=== PATIENT | female | born 1985 | race Caucasian/White ===

== ENCOUNTER 2018-12-31 13:30 | Emergency (ER) | payer BC ==
[~2018-12-31] VITALS: Ht 175.3 cm; Wt 59.9 kg
[2018-12-31 14:21] LABS: ABSOLUTE NEUTROPHILS 2.5 thou/uL (1.4-8.2); MCV 86.2 fL (80.0-100.0)
[2018-12-31 14:23] LABS: BASOPHILS 0.4 % (0.0-2.0); EOSINOPHILS 0.8 % (0.0-3.0); HEMOGLOBIN 13.5 gm/dL (12.0-15.0); LYMPHOCYTES 33.7 % (24.0-44.0); MCHC 33.6 g/dL (28.0-37.0); MONOCYTES 6.7 % (1.0-8.0); PLATELET COUNT 204 thou/uL (150-400); POLYS 58.4 % (36.0-66.0); RBC 4.64 mil/uL (4.20-5.00); RDW 13.3 % (10.5-14.5); WBC 4.4 thou/uL (4.0-11.0)
[2018-12-31 14:30] LABS: CALCIUM 8.9 mg/dL (8.5-10.1); CREATININE 0.9 mg/dL (0.6-1.0); MAGNESIUM 2.1 mg/dL (1.8-2.4); POTASSIUM 3.9 mmol/L (3.5-5.1)
[2018-12-31] MEDS ORDERED: TRAZODONE HCL50 MG PO (15:49)
[2018-12-31] MEDS ORDERED: PROVIGIL 200 M200 MG PO (15:49)
[2018-12-31 16:53] VITALS: BP 123/75
== END 2018-12-31 16:54 | disposition home or self-care (01) ==
LOC: ER 13:30
PROVIDERS: Emergency Medicine
DX: R20.0 Anesthesia of skin (principal); F17.210 Nicotine dependence, cigarettes, uncomplicated